=== PATIENT | male | born 1955 | race Caucasian/White ===

== ENCOUNTER 2018-06-28 11:04 | Emergency (ER) | payer MEDICAID ==
[~2018-06-28] VITALS: Ht 175.3 cm; Wt 63.6 kg
[2018-06-28 11:34] VITALS: BP 131/95
[2018-06-28 11:50] LABS: BASOPHILS # (AUTO) 0.1 X10'3 (0-0.2); BASOPHILS % (AUTO) 0.6 % (0-1); EOSINOPHILS # (AUTO) 0.2 X10'3 (0-0.9); EOSINOPHILS % (AUTO) 2.3 % (0-6); HEMATOCRIT 46.6 % (42.0-52.0); HEMOGLOBIN 15.8 g/dl (14.0-17.9); LYMPHOCYTES # (AUTO) 2.1 X10'3 (1.1-4.8); LYMPHOCYTES % (AUTO) 23.5 % (21-51); MEAN CORPUSCULAR HEMOGLOBIN 34.8 PG (27.0-31.0); MEAN CORPUSCULAR HGB CONC 33.8 % (33.0-36.5); MEAN CORPUSCULAR VOLUME 102.8 FL (78-98); MEAN PLATELET VOLUME 7.4 FL (7.4-10.4); MONOCYTES # (AUTO) 0.7 X10'3 (0-0.9); MONOCYTES % (AUTO) 7.4 % (2-12); NEUTROPHILS # (AUTO) 5.8 X10'3 (1.8-7.7); NEUTROPHILS % (AUTO) 66.2 % (42-75); PLATELET COUNT 399 X10'3 (140-440); RED BLOOD COUNT 4.53 X10'6 (4.70-6.10); RED CELL DISTRIBUTION WIDTH 13.9 % (11.5-14.5); WHITE BLOOD COUNT 8.8 X10'3 (4.5-11.0)
[2018-06-28 11:53] LABS: ALANINE AMINOTRANSFERASE 16 U/L (12-78); ALBUMIN 3.9 G/DL (3.4-5.0); ALBUMIN/GLOBULIN RATIO 0.9 (1.1-1.5); ALKALINE PHOSPHATASE 55 IU/L (46-116); ANION GAP 9 (8-16); ASPARTATE AMINO TRANSFERASE 17 U/L (10-37); BILIRUBIN,TOTAL 0.4 MG/DL (0.1-1.0); BLOOD UREA NITROGEN 9 MG/DL (7-18); BUN/CREATININE RATIO 9.2 (5.4-32.0); CALCIUM 9.4 MG/DL (8.5-10.1); CHLORIDE 98 MMOL/L (99-107); CREATININE 0.98 MG/DL (0.60-1.10); GLUCOSE 82 MG/DL (70-104); PARTIAL THROMBOPLASTIN TIME 35 SECONDS (22-32); POTASSIUM 4.8 MMOL/L (3.5-5.1); SODIUM 134 MMOL/L (135-145); TOTAL CARBON DIOXIDE 27.4 MMOL/L (24-32); TOTAL PROTEIN 8.1 G/DL (6.4-8.2); eGFR 78 ML/MIN
== END 2018-06-29 00:33 | disposition home or self-care (01) ==
LOC: ER 11:04
DX: R07.9 Chest pain, unspecified (principal); F17.200 Nicotine dependence, unspecified, uncomplicated; R20.0 Anesthesia of skin
CPT/HCPCS: 36415; 71045; 80053; 84484; 85025; 85610; 85730; 93005; 99284

== ENCOUNTER 2020-08-08 22:25 | Emergency (ER) | payer MEDICAID ==
[~2020-08-08] VITALS: Ht 177.8 cm; Wt 64.0 kg
--- NOTE | 2020-08-08 22:37 | NUR ---
AVE SON IN LAW [phone]. RIDE HOME. BRAYD DAUGHTER [phone] CALL FIRST
[2020-08-08] MEDS ORDERED: HYDROcodone/acetaminophen 5mg/325mg tablet PO ONE (22:40)
[2020-08-08] MEDS ORDERED: HYDR-3965 PO (23:11)
[2020-08-08 23:32] VITALS: BP 133/74
== END 2020-08-08 23:37 | disposition home or self-care (01) ==
LOC: ER 22:25
DX: S22.31XA Fracture of one rib, right side, initial encounter for closed fracture (principal); J44.9 Chronic obstructive pulmonary disease, unspecified; G89.29 Other chronic pain; Z79.899 Other long term (current) drug therapy; W19.XXXA Unspecified fall, initial encounter; Z91.81 History of falling; Y93.89 Activity, other specified; Y92.89 Other specified places as the place of occurrence of the external cause; Y99.8 Other external cause status
CPT/HCPCS: 71045; 99284

== ENCOUNTER 2021-03-10 09:18 | Inpatient (IN) | payer MEDICAID ==
[~2021-03-10] VITALS: Ht 172.7 cm; Wt 72.0 kg
[2021-03-10] VITALS (7 sets, daily range): BP systolic 120–156; BP diastolic 81–110
--- NOTE | 2021-03-10 10:18 | NUR ---
NOTIFIED CHARGE NURSE OLGA THAT PT HAS RIB PAIN RECIVED FENTNYL ENROUTE WITH NO RELIVE AND CREPITUS AT SITE OF RIB PAIN RGT LATERAL SIDE I HAVE LEVEL ONE STROKE IF CHARGE CAN COMMUNICATE WITH THE PROVIDER.
[2021-03-10] MEDS ORDERED: ondansetron/PF 4mg/2ml inj IV ONE (10:55)
[2021-03-10] MEDS ORDERED: morphine 4 MG/ML inj SYRINge IV ONE (10:55)
--- NOTE | 2021-03-10 10:56 | NUR ---
CAME TO SEE THE PT AFTER DONE WITH THE STROKE PT NEXT DOOR ,PT RGT SIDE CHEST WALL IS SWOLLEN ALONG WITH NECK ,DAUGHTER AT BEDSIDE ,DR TELLES NOTIFIED PER MD HE IS AWARE AND ODER THE CT SCAN .
--- NOTE | 2021-03-10 11:13 | NUR ---
CALLED THE CT SCAN FOR EMERGENCY CT SCAN. PER THEM THEY WILL BE HERE IN FEW MINS.
[2021-03-10] MEDS ORDERED: iohexol 300mg/ml 100ml inj. ONE (11:17)
[2021-03-10 11:27] LABS: BASOPHILS % (AUTO) 0.2 % (0-1); EOSINOPHILS % (AUTO) 0.1 % (0-6); HEMATOCRIT 43.3 % (42.0-52.0); HEMOGLOBIN 14.4 g/dl (14.0-17.9); LYMPHOCYTES # (AUTO) 1.2 X10'3 (1.1-4.8); LYMPHOCYTES % (AUTO) 6.1 % (21-51); MEAN CORPUSCULAR HEMOGLOBIN 34.2 PG (27.0-31.0); MEAN CORPUSCULAR HGB CONC 33.3 g/dL (33.0-36.5); MEAN CORPUSCULAR VOLUME 102.6 FL (78-98); MEAN PLATELET VOLUME 7.4 FL (7.4-10.4); MONOCYTES # (AUTO) 1.2 X10'3 (0-0.9); MONOCYTES % (AUTO) 6.1 % (2-12); NEUTROPHILS # (AUTO) 17.4 X10'3 (1.8-7.7); NEUTROPHILS % (AUTO) 87.5 % (42-75); PLATELET COUNT 328 X10'3 (140-440); RED BLOOD COUNT 4.22 X10'6 (4.70-6.10); RED CELL DISTRIBUTION WIDTH 14.2 % (11.5-14.5); WHITE BLOOD COUNT 19.9 X10'3 (4.5-11.0)
--- NOTE | 2021-03-10 11:32 | NUR ---
TO CT VIA RCOFFMAN COVE WITH PROPERTY DISPOSAL OFFICER
--- NOTE | 2021-03-10 11:40 | NUR ---
BACK FROM CT SCAN
[2021-03-10 11:45] LABS: ALANINE AMINOTRANSFERASE 18 U/L (12-78); ALBUMIN 4.2 G/DL (3.4-5.0); ALKALINE PHOSPHATASE 57 IU/L (46-116); ANION GAP 11 (8-16); ASPARTATE AMINO TRANSFERASE 30 U/L (10-37); BILIRUBIN,TOTAL 0.8 MG/DL (0.1-1.0); BLOOD UREA NITROGEN 17 MG/DL (7-18); BUN/CREATININE RATIO 16.7 (5.4-32.0); CHLORIDE 98 MMOL/L (99-107); CREATININE 1.02 MG/DL (0.60-1.10); GLUCOSE 89 MG/DL (70-104); SODIUM 134 MMOL/L (135-145); TOTAL CARBON DIOXIDE 24.9 MMOL/L (24-32); TOTAL PROTEIN 8.3 G/DL (6.4-8.2); eGFR 74 ML/MIN
--- NOTE | 2021-03-10 11:50 | NUR ---
PLACED THE PT ON15L NON REBREATHER PER DR RICE VERBAL ORDERS .DR RICE AT BEDSIDE EXPLAINING THE POC.
[2021-03-10 11:52] LABS: POTASSIUM 4.7 MMOL/L (3.5-5.1)
[2021-03-10 12:14] LABS: TROPONIN I < 0.04 NG/ML (0.0-0.05)
[2021-03-10 13:16] LABS: CLARITY,URINE CLEAR (Clear); COLOR,URINE YELLOW (Yellow); GLUCOSE, URINE NEGATIVE (Neg); KETONES,URINE 15 mg/dl (Neg); LEUKOCYTE ESTERASE ,URINE NEGATIVE (Neg); NITRITES, URINE NEGATIVE (Neg); OCCULT BLOOD,URINE TRACE-INTACT (Neg); PH,URINE 5.5 (4.8-8.0); PROTEIN,URINE NEGATIVE (Neg)
[2021-03-10] MEDS ORDERED: GABA300C PO (13:17)
[2021-03-10] MEDS ORDERED: DICL75TA5 PO (13:17)
[2021-03-10] MEDS ORDERED: TIOT4MIS2 INH (13:17)
[2021-03-10] MEDS ORDERED: ATOR40TA72 PO (13:17)
[2021-03-10] MEDS ORDERED: ALBU8HFA INH (13:17)
[2021-03-10] MEDS ORDERED: CYCL5TAB PO (13:17)
[2021-03-10 13:43] LABS: UA COLLECTION TYPE VOIDED
[2021-03-10 13:44] LABS: BACTERIA,URINE FEW /HPF (Neg); HYALINE CASTS 0-3 /LPF (NEGATIVE); MUCUS STRANDS MODERATE /LPF (Neg); RBC,URINE 0-2 /HPF (0-2); SQUAMOUS EPITHELIAL CELL,UR FEW /LPF (FEW); WBC,URINE 0-4 /HPF (0-4)
[2021-03-10] MEDS ORDERED: magnesium hydroxide 30ml (MOM) UD suspension PO PRN (14:20)
[2021-03-10] MEDS ORDERED: ondansetron/PF 4mg/2ml inj IV PRN (14:20)
[2021-03-10] MEDS ORDERED: mag hydrox/Alum hydrox/simeth 30ml oral suspension PO PRN (14:20)
[2021-03-10] MEDS ORDERED: acetaminophen 325mg tablet PO PRN (14:20)
--- NOTE | 2021-03-10 14:50 | NUR ---
pt went to intervention radiology for chest tube placement.
[2021-03-10] MEDS ORDERED: fentaNYL/PF 50MCG/1 ML 2ML syringe ONE (14:51)
[2021-03-10] MEDS: normal saline 1000ml 1,000 ML IV SCH (16:26)
[2021-03-10] MEDS ORDERED: LORazepam 1 MG tablet PO PRN (16:50)
[2021-03-10] MEDS ORDERED: haloperidol lactate 5mg/ml inj IM PRN (16:50)
[2021-03-10] MEDS ORDERED: haloperidol 5mg tablet PO PRN (16:50)
[2021-03-10] MEDS ORDERED: thiamine 100mg/ml 2ml inj. IV ONE (16:50)
[2021-03-10] MEDS ORDERED: LORazepam 2 mg/ml vial IV PRN (16:50)
[2021-03-10] MEDS ORDERED: dextrose 50%-water 50ml dispensing syringe IV PRN (16:50)
[2021-03-10] MEDS ORDERED: albuterol 2.5 MG/3 ML nebule NEB PRN (17:35)
[2021-03-10] MEDS ORDERED: cyclobenzaprine 10mg tablet PO PRN (17:35)
--- NOTE | 2021-03-10 18:05 | NUR ---
Problems reprioritized. Patient report given, questions answered & plan of care reviewed with Talia HAMMONDS
[2021-03-10] MEDS ORDERED: thiamine inj. 100 MG in normal saline 100ml IV soln 100 ML IV ONE (19:00)
[2021-03-10] MEDS: DICLOFENAC 75 MG PO SCH (20:00)
[2021-03-10] MEDS: docusate sod 100mg capsule PO SCH (20:00)
[2021-03-10] MEDS: gabapentin 300mg capsule PO SCH (21:00)
[2021-03-10] MEDS: CefTRIAXone/D5W-Rocephin 1gm 50 ML IV SCH (21:53)
[2021-03-11 02:00] VITALS: BP 127/78
[2021-03-11 06:00] VITALS: BP 125/74
--- NOTE | 2021-03-11 06:00 | NUR ---
Patient in room PCU 3012. I have received report from Talia HAMMONDS and had the opportunity to ask questions and assume patient care.
[2021-03-11 06:09] LABS: BASOPHILS % (AUTO) 0.3 % (0-1); EOSINOPHILS % (AUTO) 0 % (0-6); HEMATOCRIT 39.4 % (42.0-52.0); HEMOGLOBIN 13.3 g/dl (14.0-17.9); LYMPHOCYTES % (AUTO) 6.6 % (21-51); MEAN CORPUSCULAR HEMOGLOBIN 34.3 PG (27.0-31.0); MEAN CORPUSCULAR HGB CONC 33.7 g/dL (33.0-36.5); MEAN CORPUSCULAR VOLUME 101.8 FL (78-98); MEAN PLATELET VOLUME 7.7 FL (7.4-10.4); MONOCYTES # (AUTO) 1.3 X10'3 (0-0.9); MONOCYTES % (AUTO) 8.6 % (2-12); NEUTROPHILS # (AUTO) 12.5 X10'3 (1.8-7.7); NEUTROPHILS % (AUTO) 84.5 % (42-75); PLATELET COUNT 304 X10'3 (140-440); RED BLOOD COUNT 3.87 X10'6 (4.70-6.10); WHITE BLOOD COUNT 14.8 X10'3 (4.5-11.0)
[2021-03-11 06:10] LABS: ALBUMIN 3.6 G/DL (3.4-5.0); ANION GAP 14 (8-16); BLOOD UREA NITROGEN 15 MG/DL (7-18); BUN/CREATININE RATIO 13.2 (5.4-32.0); CALCIUM 8.5 MG/DL (8.5-10.1); CHLORIDE 98 MMOL/L (99-107); CREATININE 1.14 MG/DL (0.60-1.10); GLUCOSE 96 MG/DL (70-104); POTASSIUM 4.7 MMOL/L (3.5-5.1); SODIUM 136 MMOL/L (135-145); TOTAL CARBON DIOXIDE 23.6 MMOL/L (24-32); eGFR 65 ML/MIN
--- NOTE | 2021-03-11 07:51 | NUR ---
PAGER ID: [phone] MESSAGE: [id number] Kofi Pinto- Rib FX, Chest tube- no pain meds??? Fior
[2021-03-11] MEDS: DICLOFENAC 75 MG PO SCH ×2 (08:00→20:00)
[2021-03-11] MEDS: docusate sod 100mg capsule PO SCH ×2 (08:00→20:06)
[2021-03-11] MEDS ORDERED: ipratropium 0.5 MG/2.5ML nebule NEB PRN (08:00)
--- NOTE | 2021-03-11 08:39 | NUR ---
Jesus Consult: Pt admitted s/p fall w/ pneumothorax and subsequent chest tube placement per EMR. Pt noted w/ skin tear on R arm, though no other open wounds. Will continue to monitor. Addendum: 03/11/21 at [address] Amended: Links added.
[2021-03-11] MEDS: CefTRIAXone/D5W-Rocephin 1gm 50 ML IV SCH (09:08)
[2021-03-11] MEDS: enoxaparin 40mg/0.4ml syringe SUBCUT SCH (09:09)
[2021-03-11] MEDS: atorvastatin 20mg tablet PO SCH (09:09)
[2021-03-11] MEDS: thiamine 100mg tablet PO SCH (09:09)
[2021-03-11] MEDS: gabapentin 300mg capsule PO SCH ×3 (09:10→20:08)
[2021-03-11] MEDS: folic acid 1mg tablet PO SCH (09:10)
[2021-03-11] MEDS: HYDROcodone/acetaminophen 10/325mg tab PO PRN ×3 (09:26→20:06)
[2021-03-11 11:00] VITALS: BP 119/68
[2021-03-11 15:00] VITALS: BP 155/81
[2021-03-11 18:25] VITALS: BP 117/79
--- NOTE | 2021-03-11 18:41 | NUR ---
Patient in room PCU 3012. I have received report from Dillon HAMMONDS and had the opportunity to ask questions and assume patient care.
[2021-03-11] MEDS: lactobacillus rhamnosus 10,000 MMU CELLS/CAPSULE PO SCH (20:05)
--- NOTE | 2021-03-11 20:31 | NUR ---
Patient's diclofenac unavailable, asked previous nurse who had non-administered the med to verify
[2021-03-11 22:15] VITALS: BP 112/59
[2021-03-12 02:25] VITALS: BP 98/58
[2021-03-12 06:00] VITALS: BP 107/69
--- NOTE | 2021-03-12 06:15 | NUR ---
Problems reprioritized. Patient report given, questions answered & plan of care reviewed with Dillon HAMMONDS.
[2021-03-12 07:18] LABS: BASOPHILS % (AUTO) 0.3 % (0-1); EOSINOPHILS # (AUTO) 0.1 X10'3 (0-0.9); EOSINOPHILS % (AUTO) 0.7 % (0-6); HEMATOCRIT 36.2 % (42.0-52.0); HEMOGLOBIN 12.3 g/dl (14.0-17.9); LYMPHOCYTES # (AUTO) 1.1 X10'3 (1.1-4.8); LYMPHOCYTES % (AUTO) 8.9 % (21-51); MEAN CORPUSCULAR HEMOGLOBIN 33.9 PG (27.0-31.0); MEAN CORPUSCULAR HGB CONC 33.9 g/dL (33.0-36.5); MEAN CORPUSCULAR VOLUME 100.2 FL (78-98); MEAN PLATELET VOLUME 7.7 FL (7.4-10.4); MONOCYTES # (AUTO) 1.2 X10'3 (0-0.9); MONOCYTES % (AUTO) 9.8 % (2-12); NEUTROPHILS # (AUTO) 9.8 X10'3 (1.8-7.7); NEUTROPHILS % (AUTO) 80.3 % (42-75); PLATELET COUNT 275 X10'3 (140-440); RED BLOOD COUNT 3.61 X10'6 (4.70-6.10); RED CELL DISTRIBUTION WIDTH 13.9 % (11.5-14.5); WHITE BLOOD COUNT 12.1 X10'3 (4.5-11.0)
[2021-03-12 07:28] LABS: ALBUMIN 3.1 G/DL (3.4-5.0); ANION GAP 6 (8-16); BLOOD UREA NITROGEN 21 MG/DL (7-18); BUN/CREATININE RATIO 19.6 (5.4-32.0); CALCIUM 8.5 MG/DL (8.5-10.1); CHLORIDE 100 MMOL/L (99-107); CREATININE 1.07 MG/DL (0.60-1.10); GLUCOSE 105 MG/DL (70-104); SODIUM 135 MMOL/L (135-145); TOTAL CARBON DIOXIDE 29.1 MMOL/L (24-32); eGFR 70 ML/MIN
[2021-03-12] MEDS: DICLOFENAC 75 MG PO SCH ×2 (08:00→20:00)
[2021-03-12] MEDS: gabapentin 300mg capsule PO SCH ×3 (08:19→20:59)
[2021-03-12] MEDS: docusate sod 100mg capsule PO SCH ×2 (08:20→20:00)
[2021-03-12] MEDS: thiamine 100mg tablet PO SCH (08:20)
[2021-03-12] MEDS: lactobacillus rhamnosus 10,000 MMU CELLS/CAPSULE PO SCH ×2 (08:20→20:57)
[2021-03-12] MEDS: atorvastatin 20mg tablet PO SCH (08:20)
[2021-03-12] MEDS: folic acid 1mg tablet PO SCH (08:20)
[2021-03-12] MEDS: enoxaparin 40mg/0.4ml syringe SUBCUT SCH (08:21)
[2021-03-12] MEDS: CefTRIAXone/D5W-Rocephin 1gm 50 ML IV SCH (08:21)
--- NOTE | 2021-03-12 09:30 | NUR ---
Spoke to JOZEF Urbina on the phone, received order to clamp NGT and order cxr one hour out. CT clamped. will assess for changes
[2021-03-12 11:00] VITALS: BP 133/72
--- NOTE | 2021-03-12 11:00 | NUR ---
Pt CT removed aprox this time by JOZEF Urbina. Pt gaudencio well. dressing intact. pt deny sob 1115 and at 1130 after removal.
[2021-03-12] MEDS: HYDROcodone/acetaminophen 10/325mg tab PO PRN ×2 (12:30→21:06)
[2021-03-12] MEDS: normal saline 1000ml 1,000 ML IV SCH (14:20)
[2021-03-12 15:00] VITALS: BP 141/73
--- NOTE | 2021-03-12 18:36 | NUR ---
Problems reprioritized. Patient report given, questions answered & plan of care reviewed with Pat RN.
[2021-03-12 19:00] VITALS: BP 119/68
[2021-03-12] MEDS ORDERED: apixaban 5mg tablet PO SCH (20:00)
[2021-03-12 23:15] VITALS: BP 92/72
[2021-03-13 04:00] VITALS: BP 106/70
[2021-03-13] MEDS: HYDROcodone/acetaminophen 10/325mg tab PO PRN (05:14)
[2021-03-13 06:00] VITALS: BP 104/60
[2021-03-13 06:21] LABS: BASOPHILS % (AUTO) 0.2 % (0-1); EOSINOPHILS # (AUTO) 0.1 X10'3 (0-0.9); HEMATOCRIT 34.8 % (42.0-52.0); HEMOGLOBIN 11.8 g/dl (14.0-17.9); LYMPHOCYTES # (AUTO) 0.6 X10'3 (1.1-4.8); LYMPHOCYTES % (AUTO) 4.6 % (21-51); MEAN CORPUSCULAR HEMOGLOBIN 34.1 PG (27.0-31.0); MEAN CORPUSCULAR HGB CONC 33.8 g/dL (33.0-36.5); MEAN CORPUSCULAR VOLUME 100.9 FL (78-98); MEAN PLATELET VOLUME 7.7 FL (7.4-10.4); MONOCYTES % (AUTO) 7.1 % (2-12); NEUTROPHILS # (AUTO) 12.1 X10'3 (1.8-7.7); NEUTROPHILS % (AUTO) 87.1 % (42-75); PLATELET COUNT 275 X10'3 (140-440); RED BLOOD COUNT 3.45 X10'6 (4.70-6.10); WHITE BLOOD COUNT 13.9 X10'3 (4.5-11.0)
[2021-03-13 06:35] LABS: ALBUMIN 2.8 G/DL (3.4-5.0); ANION GAP 8 (8-16); BLOOD UREA NITROGEN 16 MG/DL (7-18); BUN/CREATININE RATIO 20.3 (5.4-32.0); CALCIUM 8.3 MG/DL (8.5-10.1); CHLORIDE 97 MMOL/L (99-107); CREATININE 0.79 MG/DL (0.60-1.10); GLUCOSE 113 MG/DL (70-104); POTASSIUM 3.8 MMOL/L (3.5-5.1); SODIUM 131 MMOL/L (135-145); TOTAL CARBON DIOXIDE 26.5 MMOL/L (24-32); eGFR > 90 ML/MIN
--- NOTE | 2021-03-13 08:52 | NUR ---
Reviewed cxr with md deluac this am, no new orders
[2021-03-13] MEDS: lactobacillus rhamnosus 10,000 MMU CELLS/CAPSULE PO SCH (08:54)
[2021-03-13] MEDS: gabapentin 300mg capsule PO SCH ×2 (08:54→16:00)
[2021-03-13] MEDS: docusate sod 100mg capsule PO SCH (08:54)
[2021-03-13] MEDS: enoxaparin 40mg/0.4ml syringe SUBCUT SCH (08:55)
[2021-03-13] MEDS: thiamine 100mg tablet PO SCH (08:55)
[2021-03-13] MEDS: CefTRIAXone/D5W-Rocephin 1gm 50 ML IV SCH (08:55)
[2021-03-13] MEDS: folic acid 1mg tablet PO SCH (08:55)
[2021-03-13] MEDS: atorvastatin 20mg tablet PO SCH (08:55)
[2021-03-13 11:00] VITALS: BP 105/73
--- NOTE | 2021-03-13 11:03 | NUR ---
O2 Sat at rest on room air:__88_% If below 89%: Recovery O2 Sat at rest on __2_LPM:___94%:___% via__nc (mask/nasal cannula, etc..) No further documentation is necessary. If O2 Sat did not drop below 89% on room air,ambulate patient on room air. O2 Sat while ambulating on room air:___% Recovery O2 Sat while ambulating on ___LPM:___% No further documentation is necessary. If patient does not drop below 89% while ambulating, he/she does not qualify for home O2.
[2021-03-13] MEDS ORDERED: FOLI0.4T6 PO ×2 (14:16)
[2021-03-13] MEDS ORDERED: THIA100T70 PO ×2 (14:16)
[2021-03-13] MEDS ORDERED: LEVO500T89 PO ×2 (14:16)
[2021-03-13] MEDS ORDERED: HYDR-3965 PO (16:09)
[2021-03-13] MEDS ORDERED: TRAM50TA2 PO (16:11)
--- NOTE | 2021-03-13 18:41 | NUR ---
Problems reprioritized. Patient report given, questions answered & plan of care reviewed withChristy RN .
== END 2021-03-13 17:44 | disposition home or self-care (01) | DRG 135 ==
LOC: ER 09:18 → UNDOADMIN 14:16 → ED HOLD 14:16 → PCU 3S 17:55
PROVIDERS: ADMIT Family Medicine; ATTEND Family Medicine
PROC: 0W9930Z Drainage of Right Pleural Cavity with Drainage Device, Percutaneous Approach (ICD-10-PCS; principal; 2021-03-10)
DX: S27.0XXA Traumatic pneumothorax, initial encounter (principal); S27.329A Contusion of lung, unspecified, initial encounter; S32.019A Unspecified fracture of first lumbar vertebra, initial encounter for closed fracture; S22.41XA Multiple fractures of ribs, right side, initial encounter for closed fracture; S32.029A Unspecified fracture of second lumbar vertebra, initial encounter for closed fracture; T79.7XXA Traumatic subcutaneous emphysema, initial encounter; Z20.822 Contact with and (suspected) exposure to COVID-19; W01.0XXA Fall on same level from slipping, tripping and stumbling without subsequent striking against object, initial encounter; F10.20 Alcohol dependence, uncomplicated; Y93.01 Activity, walking, marching and hiking; G62.9 Polyneuropathy, unspecified; E78.5 Hyperlipidemia, unspecified; F17.210 Nicotine dependence, cigarettes, uncomplicated; G89.4 Chronic pain syndrome; J44.9 Chronic obstructive pulmonary disease, unspecified; R29.6 Repeated falls; Y92.098 Other place in other non-institutional residence as the place of occurrence of the external cause; Y99.8 Other external cause status
CPT/HCPCS: 32557; 36415; 70450; 71045; 71260; 72125; 80048; 80053; 81001; 82948; 84145; 84484; 85025; 87081; 87635; 94640; 94760; 96374; 96375; 97163; 97530; 99285; C9803; G0378; J0696; J1650; J2270; J2405; J3010; J3411; J7030; Q9967

== ENCOUNTER 2021-03-14 01:03 | Emergency (ER) | payer MEDICAID ==
[~2021-03-14 01:03] MED LIST: ALBU8HFA INH; ATOR40TA72 PO; CYCL5TAB PO; DICL75TA5 PO; FOLI0.4T6 PO; GABA300C PO; HYDR-3965 PO; LEVO500T89 PO; THIA100T70 PO; TIOT4MIS2 INH; TRAM50TA2 PO
== END 2021-03-14 01:25 | disposition left against medical advice (07) ==
LOC: ER 01:04
DX: R11.10 Vomiting, unspecified (principal); Z53.21 Procedure and treatment not carried out due to patient leaving prior to being seen by health care provider

== ENCOUNTER 2021-03-14 12:39 | Inpatient (IN) | payer MEDICAID ==
[~2021-03-14] VITALS: Ht 172.7 cm; Wt 75.0 kg
[~2021-03-14 12:39] MED LIST changes: -HYDR-3965 PO; -TRAM50TA2 PO; +etomidate 2mg/ml inj. ONE; +rocuronium 10mg/ml inj IV ONE
[2021-03-14] MEDS ORDERED: CefTRIAXone/D5W-Rocephin 1gm 50 ML IV ONE (13:25)
[2021-03-14 13:35] LABS: ABG BASE EXCESS 3.5 mmol/L (-2.0-2.0); ABG HCO3 26.9 mmol/L (22.0-26.0); ABG OXYGEN SATURATION 94.9 % (94-97); ABG PCO2 (T) 38.1 mmHg (35.0-48.0); ABG PO2 (T) 78.4 mmHg (75.0-100.0); ALLEN'S TEST POSITIVE; FCOHb 0.4 % (0.0-3.9); FMetHb 0.3 % (0.0-1.5); FO2Hb 94.2 % (94-97); PATIENT TEMPERATURE 37.6; TOTAL HEMOGLOBIN 13.1 G/dl (14.0-18.0)
[2021-03-14] MEDS ORDERED: methylPREDNISolone sod succ 125mg/2ml vial IV ONE (13:35)
[2021-03-14] MEDS ORDERED: LORazepam 2 mg/ml vial IV ONE (13:35)
[2021-03-14] MEDS ORDERED: albuterol 2.5 MG/3 ML nebule CONTNEB PRN (13:40)
--- NOTE | 2021-03-14 13:48 | NUR ---
bg 163
[2021-03-14 13:50] LABS: BASOPHILS % (AUTO) 0.2 % (0-1); EOSINOPHILS % (AUTO) 0 % (0-6); HEMATOCRIT 36.7 % (42.0-52.0); HEMOGLOBIN 12.4 g/dl (14.0-17.9); LYMPHOCYTES # (AUTO) 0.5 X10'3 (1.1-4.8); LYMPHOCYTES % (AUTO) 2.8 % (21-51); MEAN CORPUSCULAR HEMOGLOBIN 34.3 PG (27.0-31.0); MEAN CORPUSCULAR HGB CONC 33.9 g/dL (33.0-36.5); MEAN CORPUSCULAR VOLUME 101.1 FL (78-98); MONOCYTES # (AUTO) 1.2 X10'3 (0-0.9); MONOCYTES % (AUTO) 6.2 % (2-12); NEUTROPHILS # (AUTO) 17.6 X10'3 (1.8-7.7); NEUTROPHILS % (AUTO) 90.8 % (42-75); PLATELET COUNT 351 X10'3 (140-440); RED BLOOD COUNT 3.63 X10'6 (4.70-6.10); WHITE BLOOD COUNT 19.4 X10'3 (4.5-11.0)
[2021-03-14 13:59] LABS: ALANINE AMINOTRANSFERASE 22 U/L (12-78); ALBUMIN 3.4 G/DL (3.4-5.0); ALBUMIN/GLOBULIN RATIO 0.7 (1.1-1.5); ALKALINE PHOSPHATASE 67 IU/L (46-116); ANION GAP 11 (8-16); ASPARTATE AMINO TRANSFERASE 32 U/L (10-37); BILIRUBIN,TOTAL 0.7 MG/DL (0.1-1.0); BLOOD UREA NITROGEN 34 MG/DL (7-18); BUN/CREATININE RATIO 18.5 (5.4-32.0); CALCIUM 9.7 MG/DL (8.5-10.1); CHLORIDE 91 MMOL/L (99-107); CREATININE 1.84 MG/DL (0.60-1.10); GLUCOSE 196 MG/DL (70-104); SODIUM 133 MMOL/L (135-145); TOTAL CARBON DIOXIDE 31.3 MMOL/L (24-32); eGFR 37 ML/MIN
[2021-03-14] MEDS ORDERED: propofol 1000mg/100ml bottle 100 ML IV ONE (13:59)
[2021-03-14] MEDS ORDERED: octreotide inj. 500 MCG in normal saline 100ml IV soln 100 ML IV SCH ×2 (14:00→14:05)
[2021-03-14 14:02] LABS: TROPONIN I < 0.04 NG/ML (0.0-0.05)
[2021-03-14 14:04] LABS: BILIRUBIN,DIRECT 0.2 MG/DL (0-0.3); LIPASE 57 U/L (73-393)
[2021-03-14] MEDS ORDERED: octreotide inj. 1,250 MCG in normal saline 250ml IV soln 243.75 ML IV SCH (14:04)
[2021-03-14] MEDS ORDERED: pantoprazole 40 MG vial IV ONE (14:05)
[2021-03-14] MEDS ORDERED: octreotide 100mcg/1 ml ampule IV ONE (14:05)
[2021-03-14] MEDS: propofol 1000mg/100ml bottle 100 ML IV SCH (14:10)
[2021-03-14] MEDS: FENTANYL-0.9 % NACL/PF 100 ML IV PRN (14:11)
[2021-03-14] MEDS: pantoprazole 40MG/NS 100ML BAG 100 ML IV SCH ×2 (14:12→19:43)
[2021-03-14 14:15] LABS: TRIGLYCERIDES 99 MG/DL (20-135)
[2021-03-14] MEDS: normal saline 1000ml 1,000 ML IV SCH ×2 (14:15→18:55)
[2021-03-14] MEDS ORDERED: ondansetron/PF 4mg/2ml inj IV PRN (14:15)
[2021-03-14] MEDS ORDERED: acetaminophen 325mg tablet PO PRN ×2 (14:15)
[2021-03-14] MEDS ORDERED: LIDOcaine 2% 10ml TOPICAL JELLY (Urojet) TP ONE (14:15)
[2021-03-14] MEDS ORDERED: magnesium hydroxide 30ml (MOM) UD suspension PO PRN (14:15)
[2021-03-14 14:29] LABS: PARTIAL THROMBOPLASTIN TIME 31 SECONDS (22-32)
--- NOTE | 2021-03-14 15:20 | NUR ---
DR SHAY AT BEDSIDE TO ASSESS PATIENT AT THIS TIME, DAUGHTER AT BEDSIDE STATES PATIENT HAD FALL WITH BROKEN RIBS AND LUNG PUNCTURE CAUSING CHEST TUBE PLACEMENT. PATIENT AT HOME LAST NIGHT FELT SHORT OF BREATH, NAUSEOUS, PAT TAKEN TO ER BUT REFUSED TO STAY AND WAS SENT HOME WITH O2 TANK.
[2021-03-14 15:26] LABS: PLATELET COUNT 351 X10'3 (140-440)
[2021-03-14 15:33] LABS: AMMONIA < 10 UMOL/L (11-32)
[2021-03-14] MEDS ORDERED: normal saline 1000ML IV soln IVB ONE (15:40)
[2021-03-14 15:42] LABS: D-DIMER 6.76 MG/L FEU (0-0.50); PARTIAL THROMBOPLASTIN TIME 33 SECONDS (22-32)
--- NOTE | 2021-03-14 15:42 | NUR ---
DR CORBIN IN TO SPEAK WITH DAUGHTERS AT BEDSIDE, ALL QUESTIONS AND CONCERNS ADDRESSED. PER MD GI MD CONTACTED FOR CONSULTATION.
[2021-03-14 15:43] LABS: LACTIC SEPSIS 4.7 MMOL/L (0.4-2.0)
--- NOTE | 2021-03-14 15:43 | NUR ---
lab called [place] 4.7
--- NOTE | 2021-03-14 15:44 | NUR ---
LA 4.7 REPORTED TO NASRA ORELLANA AND DR. CORBIN
[2021-03-14] MEDS ORDERED: iohexol 350MG/ML 100ml bottle IV ONE (15:50)
[2021-03-14 15:57] LABS: ABG BASE EXCESS 2.1 mmol/L (-2.0-2.0); ABG HCO3 27.5 mmol/L (22.0-26.0); ABG OXYGEN SATURATION 99.1 % (94-97); ABG PCO2 (T) 48.6 mmHg (35.0-48.0); ABG PO2 (T) 287.2 mmHg (75.0-100.0); ALLEN'S TEST POSITIVE; FCOHb 0.3 % (0.0-3.9); FMetHb 0.3 % (0.0-1.5); FO2Hb 98.5 % (94-97); PEEP 5 cm H2O; RESPIRATORY RATE 18 b/min; TIDAL VOLUME 450 mL; TOTAL HEMOGLOBIN 10.1 G/dl (14.0-18.0)
[2021-03-14] MEDS ORDERED: pantoprazole 40MG/NS 100ML BAG 100 ML IV SCH (16:00)
[2021-03-14 16:05] LABS: CLARITY,URINE SLIGHTLY CLOUDY (Clear); COLOR,URINE YELLOW (Yellow); GLUCOSE, URINE NEGATIVE (Neg); KETONES,URINE TRACE mg/dl (Neg); LEUKOCYTE ESTERASE ,URINE TRACE (Neg); NITRITES, URINE NEGATIVE (Neg); OCCULT BLOOD,URINE TRACE-INTACT (Neg); PH,URINE 5.5 (4.8-8.0); PROTEIN,URINE TRACE mg/dl (Neg); UROBILINOGEN,URINE 0.2 E.U/dL (0.2-1.0)
[2021-03-14 16:10] LABS: UA COLLECTION TYPE NON-SPECIFIED
[2021-03-14 16:12] LABS: HYALINE CASTS 0-3 /LPF (NEGATIVE); MUCUS STRANDS FEW /LPF (Neg); SQUAMOUS EPITHELIAL CELL,UR FEW /LPF (FEW)
[2021-03-14 16:23] LABS: BACTERIA,URINE FEW /HPF (Neg); RBC,URINE 0-2 /HPF (0-2)
[2021-03-14 17:37] LABS: HEMATOCRIT 29.5 % (42.0-52.0); MEAN CORPUSCULAR HEMOGLOBIN 34.1 PG (27.0-31.0); MEAN CORPUSCULAR HGB CONC 33.7 g/dL (33.0-36.5); MEAN CORPUSCULAR VOLUME 101.1 FL (78-98); MEAN PLATELET VOLUME 7.7 FL (7.4-10.4); PLATELET COUNT 286 X10'3 (140-440); RED BLOOD COUNT 2.92 X10'6 (4.70-6.10); RED CELL DISTRIBUTION WIDTH 13.8 % (11.5-14.5); WHITE BLOOD COUNT 9.2 X10'3 (4.5-11.0)
[2021-03-14] MEDS: famotidine/PF 10 mg/ml inj IV SCH (19:43)
[2021-03-14] MEDS: docusate sod 100mg capsule PO SCH (19:43)
[2021-03-14] MEDS ORDERED: acetaminophen 650mg rectal suppository RC ONE ×2 (20:50→20:56)
[2021-03-14] MEDS ORDERED: acetaminophen 325mg rectal suppository RC ONE (20:55)
[2021-03-14] MEDS: NORepinephrine inj. 32 MG in normal saline 250ml IV soln 218 ML IV SCH (22:46)
[2021-03-15] VITALS (11 sets, daily range): BP systolic 104–139; BP diastolic 61–79
[2021-03-15] MEDS: pantoprazole 40MG/NS 100ML BAG 100 ML IV SCH ×5 (01:00→19:08)
[2021-03-15] MEDS: normal saline 1000ml 1,000 ML IV SCH ×3 (02:21→17:35)
[2021-03-15 02:56] LABS: BASOPHILS % (AUTO) 0.1 % (0-1); EOSINOPHILS % (AUTO) 0 % (0-6); HEMATOCRIT 25.2 % (42.0-52.0); HEMOGLOBIN 8.7 g/dl (14.0-17.9); LYMPHOCYTES # (AUTO) 0.3 X10'3 (1.1-4.8); LYMPHOCYTES % (AUTO) 3.3 % (21-51); MEAN CORPUSCULAR HEMOGLOBIN 34.2 PG (27.0-31.0); MEAN CORPUSCULAR HGB CONC 34.4 g/dL (33.0-36.5); MEAN CORPUSCULAR VOLUME 99.4 FL (78-98); MEAN PLATELET VOLUME 7.7 FL (7.4-10.4); MONOCYTES # (AUTO) 0.5 X10'3 (0-0.9); NEUTROPHILS # (AUTO) 9.6 X10'3 (1.8-7.7); NEUTROPHILS % (AUTO) 91.6 % (42-75); PLATELET COUNT 271 X10'3 (140-440); RED BLOOD COUNT 2.54 X10'6 (4.70-6.10); RED CELL DISTRIBUTION WIDTH 13.7 % (11.5-14.5); WHITE BLOOD COUNT 10.5 X10'3 (4.5-11.0)
[2021-03-15 03:11] LABS: PARTIAL THROMBOPLASTIN TIME 34 SECONDS (22-32)
[2021-03-15 03:22] LABS: ABG BASE EXCESS 3.4 mmol/L (-2.0-2.0); ABG HCO3 27.1 mmol/L (22.0-26.0); ABG OXYGEN SATURATION 95.1 % (94-97); ABG PCO2 (T) 38.7 mmHg (35.0-48.0); ALLEN'S TEST POSITIVE; FCOHb 0.3 % (0.0-3.9); FO2Hb 94.8 % (94-97); PATIENT TEMPERATURE 37.8; PEEP 5 cm H2O; RESPIRATORY RATE 18 b/min; TOTAL HEMOGLOBIN 8.9 G/dl (14.0-18.0)
[2021-03-15 03:32] LABS: ALANINE AMINOTRANSFERASE 19 U/L (12-78); ALBUMIN 2.1 G/DL (3.4-5.0); ALBUMIN/GLOBULIN RATIO 0.6 (1.1-1.5); ALKALINE PHOSPHATASE 42 IU/L (46-116); ANION GAP 9 (8-16); ASPARTATE AMINO TRANSFERASE 23 U/L (10-37); BILIRUBIN,TOTAL 0.4 MG/DL (0.1-1.0); BLOOD UREA NITROGEN 36 MG/DL (7-18); BUN/CREATININE RATIO 21.6 (5.4-32.0); CALCIUM 7.3 MG/DL (8.5-10.1); CHLORIDE 101 MMOL/L (99-107); CREATININE 1.67 MG/DL (0.60-1.10); GLUCOSE 163 MG/DL (70-104); POTASSIUM 4.5 MMOL/L (3.5-5.1); SODIUM 138 MMOL/L (135-145); TOTAL PROTEIN 5.4 G/DL (6.4-8.2); TRIGLYCERIDES 80 MG/DL (20-135); eGFR 42 ML/MIN
[2021-03-15] MEDS: FENTANYL-0.9 % NACL/PF 100 ML IV PRN ×2 (06:01→19:03)
[2021-03-15] MEDS ORDERED: MIDAZolam 1 MG/ML 5ML VIAL ONE (06:56)
[2021-03-15] MEDS ORDERED: fentaNYL/PF 50MCG/1 ML 2ML syringe ONE (06:56)
[2021-03-15] MEDS: propofol 1000mg/100ml bottle 100 ML IV SCH (07:14)
[2021-03-15] MEDS: docusate sod 100mg capsule PO SCH ×2 (08:00→20:27)
--- NOTE | 2021-03-15 08:13 | NUR ---
dr. cardenas at bedside for EGD. OG replaced with scope for verification at end of procedure.
[2021-03-15] MEDS: famotidine/PF 10 mg/ml inj IV SCH (09:00)
--- NOTE | 2021-03-15 16:00 | NUR ---
Informed Dr. Cohen of right upper back crepitus and bruising. No new orders at this time.
[2021-03-15] MEDS ORDERED: CALCIUM GLUC 1gm/50ml NACL,iso 50 ML IV ONE (17:10)
[2021-03-15] MEDS ORDERED: magnesium 2GM in 50ml NS 50 ML IV ONE (17:10)
--- NOTE | 2021-03-15 18:43 | NUR ---
Problems reprioritized. Patient report given, questions answered & plan of care reviewed with Brennen HAMMONDS.
[2021-03-16] VITALS (29 sets, daily range): BP systolic 90–123; BP diastolic 54–73
[2021-03-16] MEDS: pantoprazole 40MG/NS 100ML BAG 100 ML IV SCH ×5 (01:50→22:32)
[2021-03-16 03:06] LABS: BASOPHILS % (AUTO) 0 % (0-1); EOSINOPHILS # (AUTO) 0.1 X10'3 (0-0.9); EOSINOPHILS % (AUTO) 1.2 % (0-6); HEMOGLOBIN 7.2 g/dl (14.0-17.9); LYMPHOCYTES # (AUTO) 0.6 X10'3 (1.1-4.8); LYMPHOCYTES % (AUTO) 6.1 % (21-51); MEAN CORPUSCULAR HEMOGLOBIN 34.3 PG (27.0-31.0); MEAN CORPUSCULAR HGB CONC 33.4 g/dL (33.0-36.5); MEAN CORPUSCULAR VOLUME 102.5 FL (78-98); MEAN PLATELET VOLUME 7.5 FL (7.4-10.4); MONOCYTES # (AUTO) 1.5 X10'3 (0-0.9); MONOCYTES % (AUTO) 14.3 % (2-12); NEUTROPHILS # (AUTO) 7.9 X10'3 (1.8-7.7); NEUTROPHILS % (AUTO) 78.4 % (42-75); PLATELET COUNT 242 X10'3 (140-440); RED CELL DISTRIBUTION WIDTH 14.2 % (11.5-14.5); WHITE BLOOD COUNT 10.1 X10'3 (4.5-11.0)
[2021-03-16 03:10] LABS: HEMATOCRIT 21.5 % (42.0-52.0)
[2021-03-16 03:21] LABS: PARTIAL THROMBOPLASTIN TIME 32 SECONDS (22-32)
[2021-03-16 03:26] LABS: ALANINE AMINOTRANSFERASE 18 U/L (12-78); ALBUMIN/GLOBULIN RATIO 0.6 (1.1-1.5); ALKALINE PHOSPHATASE 46 IU/L (46-116); ANION GAP 5 (8-16); ASPARTATE AMINO TRANSFERASE 22 U/L (10-37); BILIRUBIN,TOTAL 0.4 MG/DL (0.1-1.0); BLOOD UREA NITROGEN 32 MG/DL (7-18); CALCIUM 7.5 MG/DL (8.5-10.1); CHLORIDE 108 MMOL/L (99-107); CREATININE 0.97 MG/DL (0.60-1.10); GLUCOSE 107 MG/DL (70-104); MAGNESIUM 2.9 MG/DL (1.5-2.4); PHOSPHORUS 2.5 MG/DL (2.3-4.5); POTASSIUM 4.4 MMOL/L (3.5-5.1); SODIUM 142 MMOL/L (135-145); TOTAL CARBON DIOXIDE 29.1 MMOL/L (24-32); TOTAL PROTEIN 5.1 G/DL (6.4-8.2); eGFR 78 ML/MIN
[2021-03-16 03:36] LABS: ABG BASE EXCESS 3.1 mmol/L (-2.0-2.0); ABG HCO3 28.2 mmol/L (22.0-26.0); ABG OXYGEN SATURATION 95.9 % (94-97); ABG PCO2 (T) 45.1 mmHg (35.0-48.0); ABG PO2 (T) 88.4 mmHg (75.0-100.0); ALLEN'S TEST POSITIVE; FCOHb 0.3 % (0.0-3.9); FMetHb 0.1 % (0.0-1.5); FO2Hb 95.5 % (94-97); PATIENT TEMPERATURE 36.4; PEEP 5 cm H2O; RESPIRATORY RATE 15 b/min; TIDAL VOLUME 450 mL; TOTAL HEMOGLOBIN 8.2 G/dl (14.0-18.0)
[2021-03-16] MEDS: normal saline 1000ml 1,000 ML IV SCH ×3 (04:50→22:34)
[2021-03-16] MEDS: propofol 1000mg/100ml bottle 100 ML IV SCH (05:41)
[2021-03-16] MEDS: FENTANYL-0.9 % NACL/PF 100 ML IV PRN (05:42)
--- NOTE | 2021-03-16 06:40 | NUR ---
Patient in room ICU 2045. I have received report from Brennen HAMMONDS and had the opportunity to ask questions and assume patient care.
[2021-03-16] MEDS: docusate sod 100mg capsule PO SCH (07:18)
[2021-03-16] MEDS: CefTRIAXone 2gm/D5W 50ml BAG 50 ML IV SCH (07:20)
[2021-03-16] MEDS: dexmedetomidin/NS 400mcg/100ml 100 ML IV SCH ×2 (08:27→21:41)
[2021-03-16 09:37] LABS: BASOPHILS % (AUTO) 0.1 % (0-1); EOSINOPHILS # (AUTO) 0.3 X10'3 (0-0.9); EOSINOPHILS % (AUTO) 2.8 % (0-6); LYMPHOCYTES # (AUTO) 0.7 X10'3 (1.1-4.8); LYMPHOCYTES % (AUTO) 7.5 % (21-51); MEAN CORPUSCULAR HEMOGLOBIN 34.4 PG (27.0-31.0); MEAN CORPUSCULAR HGB CONC 33.6 g/dL (33.0-36.5); MEAN CORPUSCULAR VOLUME 102.3 FL (78-98); MEAN PLATELET VOLUME 6.8 FL (7.4-10.4); MONOCYTES # (AUTO) 1.4 X10'3 (0-0.9); MONOCYTES % (AUTO) 15.7 % (2-12); NEUTROPHILS # (AUTO) 6.8 X10'3 (1.8-7.7); NEUTROPHILS % (AUTO) 73.9 % (42-75); PLATELET COUNT 233 X10'3 (140-440); RED BLOOD COUNT 2.04 X10'6 (4.70-6.10); WHITE BLOOD COUNT 9.2 X10'3 (4.5-11.0)
[2021-03-16 09:43] LABS: HEMATOCRIT 20.9 % (42.0-52.0)
[2021-03-16] MEDS ORDERED: CALCIUM GLUC 1gm/50ml NACL,iso 50 ML IV ONE (10:35)
[2021-03-16] MEDS: albuterol 2.5 MG/3 ML nebule NEB PRN (10:44)
--- NOTE | 2021-03-16 11:27 | NUR ---
Malnutrition Consult "pt/fam ed": Pt intubated admit DX septic shock, pneumothorax, respiratory failure w/ hypoxia, and GIB hx erosive esophagitis per MD note. Possible extubation if improves today but if not TF to start tomorrow per landscape drafter at rounds. OG in place w/ MAP 64 this AM. TF recs below given pt needs. Pt has visible temporal wasting present during RD visit does appear thin though no other signs of muscle/fat wasting evident. No edema/wounds or significant weakness present w/ pt wt hx 72kg 6 days ago via bed scale 03/10 however current bed scaled wt 61.9kg; likely prior wt not accurate. Pt lacks minimum malnutrition criteria at this time. Will continue to monitor. Rec: 1. IF TF; Vital AF at 60ml/hr goal to provide 1440ml volume, 1728 kcals, 1166ml free water, and 108g protein 2. IF TF; additional water flush 150ml Q4H; monitor for serum Na and adjustment needs receiving NS at 125ml/hr w/ serum Na 142 up from 133 on admit 3. IF TF; PALB Q /; daily wts 4. bowel care per rx 5. upon extubation; advance diet as medically indicated to regular Addendum: 03/16/21 at [address] Amended: Links added.
[2021-03-16 15:14] LABS: HEMATOCRIT 25.3 % (42.0-52.0); HEMOGLOBIN 8.6 g/dl (14.0-17.9); MEAN CORPUSCULAR HEMOGLOBIN 32.4 PG (27.0-31.0); MEAN CORPUSCULAR HGB CONC 33.9 g/dL (33.0-36.5); MEAN CORPUSCULAR VOLUME 95.6 FL (78-98); MEAN PLATELET VOLUME 6.4 FL (7.4-10.4); PLATELET COUNT 184 X10'3 (140-440); RED BLOOD COUNT 2.65 X10'6 (4.70-6.10); RED CELL DISTRIBUTION WIDTH 16.7 % (11.5-14.5); WHITE BLOOD COUNT 7.4 X10'3 (4.5-11.0)
--- NOTE | 2021-03-16 18:29 | NUR ---
Problems reprioritized. Patient report given, questions answered & plan of care reviewed with Brennen HAMMONDS.
[2021-03-16] MEDS: docusate sodium 100mg/10ml UD cup PO SCH (19:33)
[2021-03-16] MEDS: NORepinephrine inj. 32 MG in normal saline 250ml IV soln 218 ML IV SCH (22:34)
[2021-03-17] VITALS (24 sets, daily range): BP systolic 108–152; BP diastolic 60–78
[2021-03-17] MEDS: dexmedetomidin/NS 400mcg/100ml 100 ML IV SCH ×2 (01:49→07:39)
[2021-03-17 03:44] LABS: ABG BASE EXCESS -0.7 mmol/L (-2.0-2.0); ABG OXYGEN SATURATION 97.6 % (94-97); ABG PCO2 (T) 39.4 mmHg (35.0-48.0); ABG PO2 (T) 106.4 mmHg (75.0-100.0); ALLEN'S TEST Yes; FCOHb 0.3 % (0.0-3.9); FMetHb 0.1 % (0.0-1.5); FO2Hb 97.2 % (94-97); PATIENT TEMPERATURE 36.9; PEEP 5 cm H2O; TOTAL HEMOGLOBIN 8.9 G/dl (14.0-18.0)
[2021-03-17 04:08] LABS: BASOPHILS % (AUTO) 0.2 % (0-1); EOSINOPHILS # (AUTO) 0.2 X10'3 (0-0.9); EOSINOPHILS % (AUTO) 2.4 % (0-6); HEMATOCRIT 25.2 % (42.0-52.0); HEMOGLOBIN 8.5 g/dl (14.0-17.9); LYMPHOCYTES # (AUTO) 0.6 X10'3 (1.1-4.8); LYMPHOCYTES % (AUTO) 6.1 % (21-51); MEAN CORPUSCULAR HEMOGLOBIN 32.6 PG (27.0-31.0); MEAN CORPUSCULAR HGB CONC 33.5 g/dL (33.0-36.5); MEAN CORPUSCULAR VOLUME 97.3 FL (78-98); MEAN PLATELET VOLUME 7.1 FL (7.4-10.4); MONOCYTES # (AUTO) 1.2 X10'3 (0-0.9); MONOCYTES % (AUTO) 12.5 % (2-12); NEUTROPHILS # (AUTO) 7.3 X10'3 (1.8-7.7); NEUTROPHILS % (AUTO) 78.8 % (42-75); PLATELET COUNT 193 X10'3 (140-440); RED CELL DISTRIBUTION WIDTH 17.3 % (11.5-14.5); WHITE BLOOD COUNT 9.3 X10'3 (4.5-11.0)
[2021-03-17 04:22] LABS: PARTIAL THROMBOPLASTIN TIME 32 SECONDS (22-32)
[2021-03-17 04:27] LABS: ALANINE AMINOTRANSFERASE 17 U/L (12-78); ALBUMIN 2.1 G/DL (3.4-5.0); ALBUMIN/GLOBULIN RATIO 0.7 (1.1-1.5); ALKALINE PHOSPHATASE 43 IU/L (46-116); ANION GAP 6 (8-16); ASPARTATE AMINO TRANSFERASE 25 U/L (10-37); BILIRUBIN,TOTAL 0.3 MG/DL (0.1-1.0); BLOOD UREA NITROGEN 28 MG/DL (7-18); BUN/CREATININE RATIO 28.9 (5.4-32.0); CALCIUM 7.5 MG/DL (8.5-10.1); CHLORIDE 109 MMOL/L (99-107); CREATININE 0.97 MG/DL (0.60-1.10); GLUCOSE 93 MG/DL (70-104); MAGNESIUM 2.4 MG/DL (1.5-2.4); POTASSIUM 4.3 MMOL/L (3.5-5.1); SODIUM 143 MMOL/L (135-145); TOTAL CARBON DIOXIDE 27.9 MMOL/L (24-32); TOTAL PROTEIN 5.2 G/DL (6.4-8.2); eGFR 78 ML/MIN
[2021-03-17] MEDS: pantoprazole 40MG/NS 100ML BAG 100 ML IV SCH ×5 (05:12→21:00)
[2021-03-17] MEDS: normal saline 1000ml 1,000 ML IV SCH ×3 (06:15→18:57)
--- NOTE | 2021-03-17 06:30 | NUR ---
Patient in room ICU 2045. I have received report from Talia HAMMONDS and had the opportunity to ask questions and assume patient care.
[2021-03-17] MEDS: docusate sodium 100mg/10ml UD cup PO SCH ×2 (07:20→20:59)
[2021-03-17] MEDS: CefTRIAXone 2gm/D5W 50ml BAG 50 ML IV SCH (07:20)
[2021-03-17] MEDS: albuterol 2.5 MG/3 ML nebule NEB PRN (07:29)
[2021-03-17] MEDS ORDERED: racepinephrine 11.25mg/0.5ml nebule NEB PRN (10:45)
[2021-03-17] MEDS ORDERED: ipratropium/albuterol 3ml nebule NEB PRN (10:45)
--- NOTE | 2021-03-17 14:57 | NUR ---
Patient extubated at 1100. Tolerated well. Maintaining sats in high 90's on 2L n/c. Moist, weak cough. Encouraged IS. Only able to pull 500 cc. States his ribs hurt. Voice improving in volume. Ice chips given without difficulty.
[2021-03-17] MEDS: ipratropium/albuterol 3ml nebule NEB SCH ×2 (15:00→20:02)
--- NOTE | 2021-03-17 16:00 | NUR ---
Care of patient transferred to Edil HAMMONDS. Report given.
--- NOTE | 2021-03-17 18:13 | NUR ---
Problems reprioritized. Patient report given, questions answered & plan of care reviewed with the cable splicer helper RN.
--- NOTE | 2021-03-17 20:10 | NUR ---
RN IS TO DOCUMENT YES TO ALL APPLICABLE AREAS Pronouncement of : YES 1. Time Physician Notified: 03/17/2021 @ [address] Caicedo 2. Date of : 03/17/2021 3. Time of : 1926 4. DNR/Withdraw life support documented:YES 5. Monitor strip has been placed on chart:YES 6. Assessment process is of one-minute duration and includes following criteria: a) Patient is unresponsive to all stimuli:YES b) Pupils fixed and non-reactive:YES c) Auscultation of precordium reveals absence of heart tones:YES d) Auscultation of lungs reveals absence of breath sounds:YES e) Absence of blood pressure / all vital signs:YES f) QRS complexes are not present on monitor / EKG strip:YES g) Pacer spikes without capture:YES 4. Comments: Family at bedside with Pt.
[2021-03-18] VITALS (17 sets, daily range): BP systolic 120–136; BP diastolic 61–76
[2021-03-18] MEDS: pantoprazole 40MG/NS 100ML BAG 100 ML IV SCH ×3 (01:00→10:59)
[2021-03-18] MEDS: normal saline 1000ml 1,000 ML IV SCH ×2 (02:34→11:02)
[2021-03-18 02:49] LABS: BASOPHILS % (AUTO) 0.2 % (0-1); EOSINOPHILS # (AUTO) 0.3 X10'3 (0-0.9); EOSINOPHILS % (AUTO) 2.2 % (0-6); HEMATOCRIT 27.5 % (42.0-52.0); HEMOGLOBIN 9.1 g/dl (14.0-17.9); LYMPHOCYTES # (AUTO) 0.9 X10'3 (1.1-4.8); LYMPHOCYTES % (AUTO) 7.3 % (21-51); MEAN CORPUSCULAR HEMOGLOBIN 32.2 PG (27.0-31.0); MEAN CORPUSCULAR HGB CONC 33.1 g/dL (33.0-36.5); MEAN CORPUSCULAR VOLUME 97.4 FL (78-98); MEAN PLATELET VOLUME 7.2 FL (7.4-10.4); MONOCYTES # (AUTO) 1.7 X10'3 (0-0.9); NEUTROPHILS # (AUTO) 9.1 X10'3 (1.8-7.7); NEUTROPHILS % (AUTO) 76.3 % (42-75); PLATELET COUNT 219 X10'3 (140-440); RED BLOOD COUNT 2.82 X10'6 (4.70-6.10); RED CELL DISTRIBUTION WIDTH 16.2 % (11.5-14.5); WHITE BLOOD COUNT 11.9 X10'3 (4.5-11.0)
[2021-03-18] MEDS: ipratropium/albuterol 3ml nebule NEB SCH ×4 (02:57→21:17)
[2021-03-18 03:05] LABS: PARTIAL THROMBOPLASTIN TIME 33 SECONDS (22-32)
[2021-03-18 03:11] LABS: ALANINE AMINOTRANSFERASE 23 U/L (12-78); ALBUMIN/GLOBULIN RATIO 0.6 (1.1-1.5); ALKALINE PHOSPHATASE 46 IU/L (46-116); ANION GAP 9 (8-16); ASPARTATE AMINO TRANSFERASE 28 U/L (10-37); BILIRUBIN,TOTAL 0.5 MG/DL (0.1-1.0); BLOOD UREA NITROGEN 19 MG/DL (7-18); CALCIUM 7.4 MG/DL (8.5-10.1); CHLORIDE 105 MMOL/L (99-107); CREATININE 0.76 MG/DL (0.60-1.10); GLUCOSE 91 MG/DL (70-104); MAGNESIUM 2.2 MG/DL (1.5-2.4); PHOSPHORUS 2.6 MG/DL (2.3-4.5); POTASSIUM 3.6 MMOL/L (3.5-5.1); SODIUM 138 MMOL/L (135-145); TOTAL CARBON DIOXIDE 24.2 MMOL/L (24-32); TOTAL PROTEIN 5.2 G/DL (6.4-8.2); eGFR > 90 ML/MIN
--- NOTE | 2021-03-18 06:20 | NUR ---
Patient in room ICU 2045. I have received report from Talia HAMMONDS and had the opportunity to ask questions and assume patient care.
[2021-03-18] MEDS: CefTRIAXone 2gm/D5W 50ml BAG 50 ML IV SCH (08:02)
[2021-03-18] MEDS: docusate sodium 100mg/10ml UD cup PO SCH ×2 (08:31→20:39)
--- NOTE | 2021-03-18 11:38 | NUR ---
Problems reprioritized. Patient report given, questions answered & plan of care reviewed with Dillon HAMMONDS. Patient going to U rm 3013.
--- NOTE | 2021-03-18 12:35 | NUR ---
PT ARRIVE FROM icu ALERT, NO RESPIRATORY DISTRESS-2LNC, IN A BED, SETTLED IN AND COMFORTABLE.
--- NOTE | 2021-03-18 13:45 | NUR ---
Pt c/o rib pain to his R side where he recently had a out of hospital fall with fx. Call to Silviculturist MD Mistry regarding pt c/o pain to his ribs. said he would look into it and had another call coming in. No orders received at this time.
[2021-03-18] MEDS ORDERED: ibuprofen tablet 400 MG TABLET PO PRN (14:20)
[2021-03-18] MEDS: HYDROcodone/acetaminophen 10/325mg tab PO PRN ×2 (14:32→20:40)
--- NOTE | 2021-03-18 18:33 | NUR ---
Problems reprioritized. Patient report given, questions answered & plan of care reviewed with Prudence RN.
[2021-03-18] MEDS: lactobacillus rhamnosus 10,000 MMU CELLS/CAPSULE PO SCH (20:39)
[2021-03-19] VITALS (7 sets, daily range): BP systolic 112–180; BP diastolic 64–97
[2021-03-19] MEDS: ipratropium/albuterol 3ml nebule NEB SCH ×4 (03:00→21:17)
--- NOTE | 2021-03-19 06:14 | NUR ---
Patient in room PCU 3013. I have received report from Julia and had the opportunity to ask questions and assume patient care.
--- NOTE | 2021-03-19 06:25 | NUR ---
Problems reprioritized. Patient report given, questions answered & plan of care reviewed with HELADIO HAMMONDS.
[2021-03-19] MEDS: pantoprazole 40mg Tablet.DR PO SCH ×2 (07:11→20:49)
[2021-03-19] MEDS: CefTRIAXone 2gm/D5W 50ml BAG 50 ML IV SCH (07:12)
[2021-03-19] MEDS: HYDROcodone/acetaminophen 10/325mg tab PO PRN ×2 (07:12→17:24)
[2021-03-19] MEDS: docusate sodium 100mg/10ml UD cup PO SCH ×3 (07:12→20:49)
[2021-03-19] MEDS: lactobacillus rhamnosus 10,000 MMU CELLS/CAPSULE PO SCH ×2 (07:14→20:49)
--- NOTE | 2021-03-19 09:39 | NUR ---
Reassessment: Pt extubated 03/17, s/p BSS with ST recs MM5 food with thin liquids as pt with some difficulty chewing d/t some missing teeth though no aspiration noted per ST note. Pt documented with average 75% PO intake since diet advancement, though with only 3 meals documented in EMR. LBM 03/18. Will continue to follow closely and monitor need for nutrition intervention pending further trends in PO intake. Recommendations: 1. Continue MM5 diet with thin liquids per ST recs 2. Monitor need for additional protein/ONS 3. Routine bowel care 4. Weekly scaled weights Addendum: 03/19/21 at [address] Amended: Links added.
--- NOTE | 2021-03-19 11:50 | NUR ---
Pt refusing SNF placement. Per daughter Florecita they are arranging Home health PT and he will have plenty of helping personnel at home upon d/c.
--- NOTE | 2021-03-19 18:34 | NUR ---
Problems reprioritized. Patient report given, questions answered & plan of care reviewed with Celena HAMMONDS.
[2021-03-20] MEDS: ipratropium/albuterol 3ml nebule NEB SCH ×2 (03:00→08:20)
[2021-03-20 06:00] VITALS: BP 111/59
--- NOTE | 2021-03-20 06:00 | NUR ---
Patient in room PCU 3013. I have received report from police shift commander RN and had the opportunity to ask questions and assume patient care.
[2021-03-20] MEDS: CefTRIAXone 2gm/D5W 50ml BAG 50 ML IV SCH (07:53)
[2021-03-20] MEDS: pantoprazole 40mg Tablet.DR PO SCH (07:53)
[2021-03-20] MEDS: lactobacillus rhamnosus 10,000 MMU CELLS/CAPSULE PO SCH (07:53)
[2021-03-20] MEDS: docusate sodium 100mg/10ml UD cup PO SCH (08:00)
[2021-03-20] MEDS: HYDROcodone/acetaminophen 10/325mg tab PO PRN (08:03)
[2021-03-20 08:38] LABS: BASOPHILS % (AUTO) 0.2 % (0-1); EOSINOPHILS # (AUTO) 0.3 X10'3 (0-0.9); HEMATOCRIT 26.3 % (42.0-52.0); HEMOGLOBIN 8.7 g/dl (14.0-17.9); LYMPHOCYTES % (AUTO) 6.8 % (21-51); MEAN CORPUSCULAR HEMOGLOBIN 32.2 PG (27.0-31.0); MEAN CORPUSCULAR HGB CONC 33.1 g/dL (33.0-36.5); MEAN CORPUSCULAR VOLUME 97.4 FL (78-98); MEAN PLATELET VOLUME 7.5 FL (7.4-10.4); MONOCYTES # (AUTO) 1.8 X10'3 (0-0.9); MONOCYTES % (AUTO) 11.6 % (2-12); NEUTROPHILS # (AUTO) 12.1 X10'3 (1.8-7.7); NEUTROPHILS % (AUTO) 79.4 % (42-75); PLATELET COUNT 300 X10'3 (140-440); WHITE BLOOD COUNT 15.2 X10'3 (4.5-11.0)
[2021-03-20 08:54] LABS: ALANINE AMINOTRANSFERASE 20 U/L (12-78); ALBUMIN 1.9 G/DL (3.4-5.0); ALBUMIN/GLOBULIN RATIO 0.6 (1.1-1.5); ALKALINE PHOSPHATASE 49 IU/L (46-116); ANION GAP 9 (8-16); ASPARTATE AMINO TRANSFERASE 18 U/L (10-37); BILIRUBIN,TOTAL 0.4 MG/DL (0.1-1.0); BLOOD UREA NITROGEN 10 MG/DL (7-18); BUN/CREATININE RATIO 13.7 (5.4-32.0); CALCIUM 7.3 MG/DL (8.5-10.1); CHLORIDE 104 MMOL/L (99-107); CREATININE 0.73 MG/DL (0.60-1.10); GLUCOSE 91 MG/DL (70-104); MAGNESIUM 2.1 MG/DL (1.5-2.4); PHOSPHORUS 2.8 MG/DL (2.3-4.5); POTASSIUM 3.5 MMOL/L (3.5-5.1); SODIUM 137 MMOL/L (135-145); TOTAL CARBON DIOXIDE 24.5 MMOL/L (24-32); TOTAL PROTEIN 5.3 G/DL (6.4-8.2); eGFR > 90 ML/MIN
[2021-03-20 10:01] LABS: D-DIMER 5.47 MG/L FEU (0-0.50)
[2021-03-20] MEDS ORDERED: PANT40TA54 PO (10:17)
[2021-03-20] MEDS ORDERED: LEVO750T46 PO (10:17)
[2021-03-20] MEDS ORDERED: HYDR-3965 PO (10:17)
[2021-03-20 11:00] VITALS: BP 112/66
--- NOTE | 2021-03-20 14:53 | NUR ---
pt ok for D/C home per Dr Hoffmann. ID and IV band removed. Instructions explained and signed. Daughter Florecita at bedside. tx to front lobby by wheelchair and ambulated to car with assist.
== END 2021-03-20 15:00 | disposition home health service (06) | DRG 720 ==
LOC: ER 12:42 → ED HOLD 14:26 → EDBEDREQ 03-15 14:08 → ICU 2S 03-15 14:56 → PCU 3S 03-18 12:30
PROVIDERS: ADMIT Surgery Surgical Critical Care; ATTEND Surgery Surgical Critical Care
PROC: 5A1945Z Respiratory Ventilation, 24-96 Consecutive Hours (ICD-10-PCS; principal; 2021-03-14)
PROC: 0BH17EZ Insertion of Endotracheal Airway into Trachea, Via Natural or Artificial Opening (ICD-10-PCS; 2021-03-14)
PROC: 06HY33Z Insertion of Infusion Device into Lower Vein, Percutaneous Approach (ICD-10-PCS; 2021-03-14)
PROC: B32T1ZZ Computerized Tomography (CT Scan) of Left Pulmonary Artery using Low Osmolar Contrast (ICD-10-PCS; 2021-03-14)
PROC: B3201ZZ Computerized Tomography (CT Scan) of Thoracic Aorta using Low Osmolar Contrast (ICD-10-PCS; 2021-03-14)
PROC: B32S1ZZ Computerized Tomography (CT Scan) of Right Pulmonary Artery using Low Osmolar Contrast (ICD-10-PCS; 2021-03-14)
PROC: B4201ZZ Computerized Tomography (CT Scan) of Abdominal Aorta using Low Osmolar Contrast (ICD-10-PCS; 2021-03-14)
PROC: B4241ZZ Computerized Tomography (CT Scan) of Superior Mesenteric Artery using Low Osmolar Contrast (ICD-10-PCS; 2021-03-14)
PROC: B4281ZZ Computerized Tomography (CT Scan) of Bilateral Renal Arteries using Low Osmolar Contrast (ICD-10-PCS; 2021-03-14)
PROC: B42C1ZZ Computerized Tomography (CT Scan) of Pelvic Arteries using Low Osmolar Contrast (ICD-10-PCS; 2021-03-14)
PROC: B42H1ZZ Computerized Tomography (CT Scan) of Bilateral Lower Extremity Arteries using Low Osmolar Contrast (ICD-10-PCS; 2021-03-14)
PROC: B4211ZZ Computerized Tomography (CT Scan) of Celiac Artery using Low Osmolar Contrast (ICD-10-PCS; 2021-03-14)
PROC: 0DJ08ZZ Inspection of Upper Intestinal Tract, Via Natural or Artificial Opening Endoscopic (ICD-10-PCS; 2021-03-15)
PROC: 30233N1 Transfusion of Nonautologous Red Blood Cells into Peripheral Vein, Percutaneous Approach (ICD-10-PCS; 2021-03-16)
DX: A41.9 Sepsis, unspecified organism (principal); J96.21 Acute and chronic respiratory failure with hypoxia; R65.21 Severe sepsis with septic shock; J18.9 Pneumonia, unspecified organism; S27.0XXA Traumatic pneumothorax, initial encounter; K20.81 Other esophagitis with bleeding; J44.0 Chronic obstructive pulmonary disease with (acute) lower respiratory infection; D62 Acute posthemorrhagic anemia; K56.7 Ileus, unspecified; T79.7XXA Traumatic subcutaneous emphysema, initial encounter; S22.41XA Multiple fractures of ribs, right side, initial encounter for closed fracture; W18.39XA Other fall on same level, initial encounter; Z20.822 Contact with and (suspected) exposure to COVID-19; G89.29 Other chronic pain; Z79.899 Other long term (current) drug therapy; Y93.89 Activity, other specified; Y92.89 Other specified places as the place of occurrence of the external cause; Y99.8 Other external cause status
CPT/HCPCS: 36415; 36430; 36600; 43235; 71045; 71275; 74174; 80048; 80053; 80076; 81001; 82140; 82803; 82948; 83605; 83690; 83735; 84100; 84145; 84478; 84484; 85018; 85025; 85027; 85379; 85384; 85610; 85730; 86885; 86900; 86901; 86920; 87040; 87081; 87088; 87635; 92508; 92616; 93005; 94002; 94003; 94640; 94760; 94799; 97110; 97161; 97530; 97535; 99285; C9113; G0378; J0696; J2060; J2250; J2354; J2704; J2930; J3010; J3475; J3490; J7030; J7050; P9016; Q9967

== ENCOUNTER 2022-06-08 10:04 | Emergency (ER) | payer MEDICARE, MEDICAID ==
[~2022-06-08] VITALS: Ht 170.2 cm; Wt 58.0 kg
[~2022-06-08 10:04] MED LIST changes: -DICL75TA5 PO; -FOLI0.4T6 PO; -LEVO500T89 PO; +PANT40TA54 PO; -THIA100T70 PO; -etomidate 2mg/ml inj. ONE; -rocuronium 10mg/ml inj IV ONE
[2022-06-08] MEDS ORDERED: normal saline 1000ml 1,000 ML IV ONE (10:25)
[2022-06-08] MEDS ORDERED: ondansetron/PF 4mg/2ml inj IV ONE (10:25)
[2022-06-08] MEDS ORDERED: pantoprazole 40mg IV 80 MG in normal saline 100ml IV soln 100 ML IV ONE (10:25)
[2022-06-08 10:39] LABS: BASOPHILS % (AUTO) 0.4 % (0-1); EOSINOPHILS % (AUTO) 0 % (0-6); HEMATOCRIT 35.7 % (42.0-52.0); HEMOGLOBIN 11.9 g/dl (14.0-17.9); LYMPHOCYTES # (AUTO) 0.4 X10'3 (1.1-4.8); LYMPHOCYTES % (AUTO) 2.9 % (21-51); MEAN CORPUSCULAR HGB CONC 33.4 g/dL (33.0-36.5); MEAN CORPUSCULAR VOLUME 101.9 FL (78-98); MEAN PLATELET VOLUME 7.4 FL (7.4-10.4); MONOCYTES # (AUTO) 1.2 X10'3 (0-0.9); MONOCYTES % (AUTO) 10.1 % (2-12); NEUTROPHILS # (AUTO) 10.6 X10'3 (1.8-7.7); NEUTROPHILS % (AUTO) 86.6 % (42-75); PLATELET COUNT 302 X10'3 (140-440); RED CELL DISTRIBUTION WIDTH 14.1 % (11.5-14.5); WHITE BLOOD COUNT 12.2 X10'3 (4.5-11.0)
[2022-06-08 10:54] LABS: APTT 33 SECONDS (22-32)
[2022-06-08 10:57] LABS: ALANINE AMINOTRANSFERASE 12 U/L (12-78); ALBUMIN 3.7 G/DL (3.4-5.0); ALBUMIN/GLOBULIN RATIO 0.9 (1.1-1.5); ALKALINE PHOSPHATASE 53 IU/L (46-116); ANION GAP 11 (8-16); ASPARTATE AMINO TRANSFERASE 24 U/L (10-37); BILIRUBIN,TOTAL 0.4 MG/DL (0.1-1.0); BLOOD UREA NITROGEN 30 MG/DL (7-18); BUN/CREATININE RATIO 18.6 (5.4-32.0); CALCIUM 8.9 MG/DL (8.5-10.1); CHLORIDE 102 MMOL/L (99-107); CREATININE 1.61 MG/DL (0.60-1.10); GLUCOSE 144 MG/DL (70-104); POTASSIUM 3.8 MMOL/L (3.5-5.1); SODIUM 139 MMOL/L (135-145); TOTAL CARBON DIOXIDE 25.7 MMOL/L (24-32); TOTAL PROTEIN 7.7 G/DL (6.4-8.2); eGFR 43 ML/MIN
[2022-06-08] MEDS ORDERED: ONDA8TAB13 PO (12:04)
[2022-06-08 12:06] VITALS: BP 124/74
== END 2022-06-08 12:10 | disposition home or self-care (01) ==
LOC: ER 10:05
DX: K92.0 Hematemesis (principal); R10.13 Epigastric pain; G89.29 Other chronic pain; J44.9 Chronic obstructive pulmonary disease, unspecified; Z79.899 Other long term (current) drug therapy; R05.9 Cough, unspecified
CPT/HCPCS: 36415; 71045; 80053; 85025; 85610; 85730; 86885; 86900; 86901; 93005; 96365; 96375; 99285; C9113; J2405; J3490; J7030; A4615

== ENCOUNTER 2023-01-02 20:02 | Emergency (ER) | payer MEDICARE, MEDICAID ==
[~2023-01-02] VITALS: Ht 175.3 cm; Wt 54.5 kg
[~2023-01-02 20:02] MED LIST changes: +ONDA8TAB13 PO
[2023-01-02 20:07] VITALS: BP 153/90
[2023-01-03] MEDS ORDERED: LidoCAINE 2% Topical Jelly 11mL syringe TOP ONE (01:20)
[2023-01-03 01:32] LABS: CLARITY,URINE CLOUDY (Clear); COLOR,URINE YELLOW (Yellow); GLUCOSE, URINE NEGATIVE (Neg); KETONES,URINE TRACE mg/dl (Neg); LEUKOCYTE ESTERASE ,URINE MODERATE (Neg); NITRITES, URINE NEGATIVE (Neg); OCCULT BLOOD,URINE MODERATE (Neg); PROTEIN,URINE NEGATIVE (Neg)
[2023-01-03 01:37] LABS: UA COLLECTION TYPE STRAIGHT CATH
[2023-01-03 01:40] LABS: WBC,URINE 30-50 /HPF (0-4)
[2023-01-03 01:41] LABS: RBC,URINE 20-50 /HPF (0-2)
[2023-01-03 01:42] LABS: MUCUS STRANDS FEW /LPF (Neg); SQUAMOUS EPITHELIAL CELL,UR FEW /LPF (FEW); TRANSITIONAL EPI CELLS,URINE FEW /HPF; WBC CLUMPS,URINE FEW /HPF (NEGATIVE)
[2023-01-03 01:44] LABS: BACTERIA,URINE 4+ /HPF (Neg)
[2023-01-03] MEDS ORDERED: cephalexin 250mg capsule PO ONE (01:50)
[2023-01-03] MEDS ORDERED: CEPH-585 PO (01:52)
--- NOTE | 2023-01-03 02:34 | NUR ---
bladder traing education given to pt and family. sent home leg bag with pt
== END 2023-01-03 02:37 | disposition home or self-care (01) ==
LOC: ER 20:03
DX: R33.9 Retention of urine, unspecified (principal); J44.9 Chronic obstructive pulmonary disease, unspecified
CPT/HCPCS: 51702; 81001; 87088; 87186; 99284; A4358

== ENCOUNTER 2023-04-28 16:01 | Emergency (ER) | payer MEDICARE, MEDICAID ==
[~2023-04-28] VITALS: Ht 175.3 cm; Wt 54.5 kg
[2023-04-28 16:15] VITALS: TEMP 97.9
[2023-04-28] MEDS ORDERED: LidoCAINE 2% Topical Jelly 11mL syringe TOP ONE (17:45)
[2023-04-28 18:20] VITALS: BP 125/76; PULSE 67; RESP 16; O2SAT 98
--- NOTE | 2023-04-28 21:35 | NUR ---
REVIEWED LVNS ASSESSMENT, AGREE WITH ASSESSMENT.
== END 2023-04-28 18:22 | disposition home or self-care (01) ==
LOC: ER 16:02
DX: T83.098A Other mechanical complication of other urinary catheter, initial encounter (principal); R33.9 Retention of urine, unspecified; J44.9 Chronic obstructive pulmonary disease, unspecified; Z79.899 Other long term (current) drug therapy
CPT/HCPCS: 51702; 99284; C1758; A4338; A4358; A5200